=== PATIENT | female | born 1990 | race Hispanic/Latino ===

== ENCOUNTER 2017-09-01 09:33 | Emergency (ER) | payer OTHER ==
[2017-09-01 09:36] VITALS: BMI 26.9
[2017-09-01 09:37] VITALS: BP 112/68; PULSE 108; RESP 17; TEMP 97.4; O2SAT 97
[2017-09-01] MEDS ORDERED: Sodium Chloride 0.9% 1,000 ML IV STA (10:06)
--- NOTE | 2017-09-01 10:07 | ED PDOC ---
HPI: General Adult Time Seen by Provider: 09/01/17 09:55 Chief Complaint (Nursing): Flu-like Symptoms Chief Complaint (Provider): Viral syndrome History Per: Patient Additional Complaint(s): 27 yo female, no PMH, presents to ED 37 weeks , complaints of generalized body aches, dry cough, congestion and fever x 2 days now. Pt has been taking Tylenol with little relief. Past Medical History Reviewed: Nursing Documentation, Vital Signs Vital Signs: Last Vital Signs Temp 97.4 F L 09/01/17 09:35 Pulse 108 H 09/01/17 09:35 Resp 17 09/01/17 09:35 BP 112/68 09/01/17 09:35 Pulse Ox 97 09/01/17 10:07 - Medical History PMH: No Chronic Diseases - Surgical History Surgical History: No Surg Hx - Family History Family History: States: No Known Family Hx - Living Arrangements Living Arrangements: With Family - Social History Current smoker - smoking cessation education provided: No Alcohol: None Drugs: Denies - Home Medications Home Medications: Ambulatory Orders Medication Instructions Recorded Oseltamivir [Tamiflu] 75 mg PO BID 5 Days cap 09/01/17 Vit No.126/Iron/Folic 1 tab PO DAILY 09/01/17 [Classic Tablet] - Allergies Allergies/Adverse Reactions: Allergies Allergy/AdvReac Type Severity Reaction Status Date / Time No Known Allergies Allergy Verified 09/01/17 09:40 Review of Systems ROS Statement: Except As Marked, All Systems Reviewed And Found Negative Constitutional: Positive for: Fever, Chills ENT: Positive for: Nose Congestion, Throat Pain Physical Exam - Reviewed Nursing Documentation Reviewed: Yes Vital Signs Reviewed: Yes - Physical Exam Appears: Positive for: Well, Non-toxic, No Acute Distress Head Exam: Positive for: ATRAUMATIC, NORMAL INSPECTION, NORMOCEPHALIC Skin: Positive for: Normal Color, Warm, DRY Eye Exam: Positive for: EOMI, Normal appearance, PERRL ENT: Positive for: TM Is/Are (WNL), Nasal Congestion, Pharyngeal Erythema. Negative for: Tonsillar Exudate, Tonsillar Swelling Neck: Positive for: Normal, Painless ROM Cardiovascular/Chest: Positive for: Regular Rate, Rhythm Respiratory: Positive for: CNT, Normal Breath Sounds Gastrointestinal/Abdominal: Positive for: Normal Exam, Bowel Sounds, Soft Back: Positive for: Normal Inspection Extremity: Positive for: Normal ROM Neurologic/Psych: Positive for: Alert, Oriented - Laboratory Results Result Diagrams: 09/01/17 10:26 09/01/17 10:26 - ECG O2 Sat by Pulse Oximetry: 97 Medical Decision Making Medical Decision Making: IV access established and treatment initiated with IVF Diagnostics reviewed with Pt who demonstrated full understanding Pt given RX to begin Tamiflu. Supportive care measures discussed as well. Advised to follow up with OB, return to ED with any concerns Disposition - Clinical Impression Clinical Impression: Influenza - Patient ED Disposition Is Patient to be Admitted: No - Disposition Disposition: Routine/Home Disposition Time: 13:07 Condition: STABLE Prescriptions: Oseltamivir [Tamiflu] 75 mg PO BID 5 Days cap Instructions: Influenza (ED) Forms: [facility] (Mexican)
[2017-09-01 10:34] LABS: BASO % 0.3 % (0.0-2.0); EOS % 0.1 % (0.0-4.0); HEMOGLOBIN 12.4 g/dL (12.0-16.0); LYMPH # 0.7 K/uL (1.0-4.3); LYMPH % 10.3 % (20.0-40.0); MEAN CELL VOLUME 92.5 fl (81.0-99.0); MEAN CORPUSCULAR HEMOGLOBIN 30.6 pg (27.0-31.0); MEAN CORPUSCULAR HGB CONC 33.1 g/dL (33.0-37.0); MEAN PLATELET VOLUME 8.3 fl (7.2-11.7); MONO # 0.8 K/uL (0.0-0.8); MONO % 10.5 % (0.0-10.0); NEUT # 5.7 K/uL (1.8-7.0); NEUT % 78.8 % (50.0-75.0); NRBC % 0.1 % (0.0-0.0); RBC 4.04 Mil/uL (3.80-5.20); RED CELL DISTRIBUTION WIDTH 14.9 % (11.5-14.5); WHITE BLOOD COUNT 7.2 K/uL (4.8-10.8)
[2017-09-01 10:47] LABS: ALB/GLOB RATIO 1.2 (1.0-2.1); ALBUMIN 3.5 g/dL (3.5-5.0); ALT/SGPT 44 U/L (9-52); AST/SGOT 32 U/L (14-36); BLOOD UREA NITROGEN 9 mg/dl (7-17); GFR AFRICAN-AMERICAN > 60; GFR NON-AFRICAN AMERICAN > 60
== END 2017-09-01 11:56 | disposition home or self-care (01) ==
LOC: H.ER 09:33
DX: J11.1 Influenza due to unidentified influenza virus with other respiratory manifestations (principal); O99.513 Diseases of the respiratory system complicating pregnancy, third trimester; Z3A.37 37 weeks gestation of pregnancy
CPT/HCPCS: 80053; 81025; 85025; 87070; 87430; 87804; 96360; 99284; J7040

== ENCOUNTER 2017-09-22 12:58 | Inpatient (IN) | payer OTHER ==
[2017-09-22 15:18] VITALS: BMI 27.5
[2017-09-22] MEDS ORDERED: Oxytocin 30 units/LR 500ML 30 U/500 ML BAG IV ONE (15:21)
[2017-09-22] MEDS ORDERED: Oxytocin 30 UNITS in Sodium Chloride 0.9% 500 ML IV ONE (15:30)
[2017-09-22 17:27] LABS: BASO % 0.2 % (0.0-2.0); HEMOGLOBIN 13.9 g/dL (12.0-16.0); LYMPH # 1.6 K/uL (1.0-4.3); LYMPH % 11.1 % (20.0-40.0); MEAN CELL VOLUME 92.4 fl (81.0-99.0); MEAN CORPUSCULAR HEMOGLOBIN 30.5 pg (27.0-31.0); MEAN PLATELET VOLUME 9.3 fl (7.2-11.7); MONO # 0.7 K/uL (0.0-0.8); MONO % 4.8 % (0.0-10.0); NEUT # 12.2 K/uL (1.8-7.0); NEUT % 83.9 % (50.0-75.0); NRBC % 0.3 % (0.0-0.0); RBC 4.56 Mil/uL (3.80-5.20); RED CELL DISTRIBUTION WIDTH 14.9 % (11.5-14.5); WHITE BLOOD COUNT 14.5 K/uL (4.8-10.8)
[2017-09-22] MEDS: Lactated Ringer's 1,000 ML IV SCH ×2 (18:35→19:30)
[2017-09-22] MEDS ORDERED: Fentanyl/Bupivacaine HCl 250 ML EPI ONE (19:30)
[2017-09-22] MEDS ORDERED: Bupivacaine HCl 0.25% PF (10 ml) Inj ONE (19:43)
--- NOTE | 2017-09-22 22:33 | OBADHP ---
Datetime: 09/22/2017 13:49 Admit Comment, IP Provider: 27 yo w 40.1 week GA IUP presents to RALF w pelvic pain/contraction s every 6 minutes that began slowly intensifying 24 hours prior. + movement, -fluid loss, -vagin al bleeding. Denies fevers/chills, n/v/d, chest pain, SOB, dyspnea, cough, hematuria, or dysuria. AxO x3 PERRL RRR, S1 S2 CTA b/l 2-3 cm dilated No pedal edema No calf tenderness 27 yo w 40.1 week GA IUP presents to RALF w pelvic pain/contractions every 6 minutes -Observe pt vitals -Observe FHR -Will reassess [place], PGY3 The patient was seen with the resident I agree with inadequate patient noted to make cervical nair ges patient for admission. Patient noted to have adequate pelvis baby in vertex presentation, estimat ed weight 6 pounds It is a normal vaginal delivery Extremities - PN: Normal Abdomen - PN: Normal Lungs - PN: Normal Heart - PN: Normal HEENT - PN: Normal General - PN: Normal FHR - Baseline A Provider: 150 Comments, ACOG Physical Exam: AxO x3 PERRL RRR, S1 S2 CTA b/l 2-3 cm dilated No pedal edema No calf tenderness Gestation - Est Wks by US: 40.1 Vital Signs Provider: Reviewed; Within Normal Limits IP Chief Complaint: Uterine contractions NICHD Variability Prov Fetus A: Moderate 6-25bpm NICHD Decel Fetus A IP Provider: None Dilatation, Provider: 2 EGA AdmitDate IP: 40.1 IP Adm Impression: Term, intrauterine IP Admit Plan: Observation/Evaluation
[2017-09-23] MEDS ORDERED: Lidocaine 1% Inj (20ml) ONE (06:54)
--- NOTE | 2017-09-23 08:44 | OBDS ---
MATERNAL INFORMATION Provider Comments: Delivered live baby girl at 7:57 AM the baby was bulb suctioned on the perineum a nd transferred to maternal chest. The cord was clamped and cut and 3 vessels noted cord blood was obt ained and sent to the lab. The placenta was delivered at 8:12 AM intact, estimated blood loss was 150 mL Cord blood collection for cryo-cell was collected for tissue specimen was also process. The karma r tolerated the procedure well. Apgars were 9 and 9. The patient went to the [facility] weighi ng 2992 g LABOR SUMMARY EDC: 09/21/2017 00:00 No. Babies in Womb: 1 LABOR INFORMATION Group B Beta Strep: Negative (Annotations: 09/05/2017) MEMBRANES Membranes Rupture Method: Artificial Amniotic Fluid Color: Clear Amniotic Fluid Amount: Small Amniotic Fluid Odor: Normal
[2017-09-23] MEDS ORDERED: Benzocaine/Menthol SPRAY TOP PRN (09:35)
[2017-09-23] MEDS: Benzocaine/Menthol SPRAY TOP PRN (13:26)
[2017-09-24 06:38] LABS: MEAN CELL VOLUME 93.4 fl (81.0-99.0); MEAN CORPUSCULAR HEMOGLOBIN 30.2 pg (27.0-31.0); MEAN CORPUSCULAR HGB CONC 32.4 g/dL (33.0-37.0); RBC 3.64 Mil/uL (3.80-5.20); RED CELL DISTRIBUTION WIDTH 15.2 % (11.5-14.5); WHITE BLOOD COUNT 21.5 K/uL (4.8-10.8)
--- NOTE | 2017-09-24 10:28 | OBPPN ---
Datetime: 09/24/2017 10:23 PP Pain Prov: Within normal limits PP Nausea Prov: Denies PP Flatus Prov: Yes PP Breasts Prov: Normal PP Heart Prov: Normal PP Lungs Prov: Normal PP Abdomen/Uterus Prov: Normal PP Lochia Prov: Normal PP Vulva/Perineum Prov: Normal PP CVA Tenderness Prov: Normal PP Extremities Prov: Normal PP Comments Phys Exam Prov: Fundus firm under umbilicus PP Impression Prov: Normal progression PP Plan Prov: Continue present management PP Progress Note Prov: Patient denies CP, no N/V, tolerating PO diet, ambulating/voiding well, mild lochia, abdominal pain tolerable with meds A/P PPD #1 1. COntinue reg diet, 2. PErcocet/Motrin prn pain 3. Encourage ambulation/ IP PP Procedures: None Vital Signs Provider PP: Reviewed; Within Normal Limits
[2017-09-25] MEDS: Benzocaine/Menthol SPRAY TOP PRN (08:53)
--- NOTE | 2017-09-25 09:00 | OBPPN ---
Datetime: 09/25/2017 08:57 PP Pain Prov: Within normal limits PP Nausea Prov: Denies PP Flatus Prov: Yes PP Breasts Prov: Normal PP Heart Prov: Normal PP Lungs Prov: Normal PP Abdomen/Uterus Prov: Normal PP Lochia Prov: Normal PP Vulva/Perineum Prov: Normal PP CVA Tenderness Prov: Normal PP Extremities Prov: Normal PP Comments Phys Exam Prov: Fundus firm under umbilicus PP Impression Prov: Normal progression PP Plan Prov: Continue present management PP Progress Note Prov: Patient denies CP, no SOB, no N/V, tolerating Po diet, ambulating/voiding wel l, mild lochia, abdominal pain tolerable with meds, A/P PPD #2 1. discharge home 2. Discharge instructions reviewed IP PP Procedures: None Vital Signs Provider PP: Reviewed; Within Normal Limits
--- NOTE | 2017-09-25 09:00 | OBDCSUM ---
Datetime: 09/25/2017 08:58 Discharged to, Provider: Home Follow up at, Provider: OB Disch Instr Activity: Normal activity Disch Instr Diet: Regular Discharge Instructions, Provider: Routine instructions given Discharge Diagnosis, Provider: Term Delivered Discharge Time: 09/25/2017 08:58 Follow up in weeks, Provider: 6 wks Disch Referrals: None Contraception discussed, Prov: Yes
[2017-09-25 16:44] VITALS: BP 121/68; PULSE 85; RESP 20; TEMP 98.3; O2SAT 97
== END 2017-09-25 12:00 | disposition home or self-care (01) | DRG 775 ==
LOC: H.L&D 12:58 → H.OB/GYN 09-23 10:50
PROVIDERS: ADMIT Obstetrics & Gynecology Gynecology; ATTEND Obstetrics & Gynecology Gynecology
PROC: 4A1HXCZ Monitoring of Products of Conception, Cardiac Rate, External Approach (ICD-10-PCS; 2017-09-22)
PROC: 10E0XZZ Delivery of Products of Conception, External Approach (ICD-10-PCS; principal; 2017-09-23)
PROC: 0HQ9XZZ Repair Perineum Skin, External Approach (ICD-10-PCS; 2017-09-23)
DX: O70.0 First degree perineal laceration during delivery (principal); Z37.0 Single live birth; Z3A.40 40 weeks gestation of pregnancy